=== PATIENT | female | born 1965 | race Caucasian/White ===

== ENCOUNTER → 2016-06-22 | Outpatient (RCR) | payer OTHER ==
[~2016-06-22] MED LIST: AMLO5TAB2 PO; ATOR40TA PO; AUGM500T34 PO; CLIN300C2 PO; CYCL10TA PO; GEMF600T PO; HYDR-3713 PO; JANU50TA4 PO; LEVO2TA PO; LOSA50TA20 PO; OMEP20CA3 PO; ZOLO50TA PO
== END ==
LOC: M PT 06-03 09:16 → M OT 06-15 10:41
PROVIDERS: ATTEND Nurse Practitioner Adult Health
DX: Z51.89 Encounter for other specified aftercare (principal); R26.89 Other abnormalities of gait and mobility; S06.0X0D Concussion without loss of consciousness, subsequent encounter

== ENCOUNTER 2016-07-13 10:45 | Outpatient (RCR) | payer OTHER | END 2016-07-23 | LOC: M OT 10:45 | PROVIDERS: ATTEND Nurse Practitioner Adult Health | DX: Z51.89 Encounter for other specified aftercare (principal); R26.89 Other abnormalities of gait and mobility; S06.0X0D Concussion without loss of consciousness, subsequent encounter ==

== ENCOUNTER 2017-04-14 12:35 | Observation (INO) | payer MEDICAID, OTHER ==
[~2017-04-14] VITALS: Ht 170.2 cm; Wt 105.2 kg
[~2017-04-14 12:35] MED LIST changes: -ATOR40TA PO; +ATOR40TA75 PO
[2017-04-14] MEDS ORDERED: GLIP5TAB8 PO (12:51)
[2017-04-14] MEDS ORDERED: GABA600T PO (12:51)
[2017-04-14] MEDS ORDERED: TRAZ-136 PO (12:51)
[2017-04-14] MEDS ORDERED: TOPA50TA8 PO (12:52)
[2017-04-14] MEDS ORDERED: TRUL10IN SC (12:56)
[2017-04-14] MEDS ORDERED: NITROGLYCERIN 0.4 MG SUBL TABLET SL PRN (13:00)
[2017-04-14 13:34] LABS: BASO # 0.1 10^3/uL (0.0-0.2); BASO % 1.1 % (0.0-1.0); EOS # 0.4 10^3/uL (0.0-0.50); EOS % 4.4 % (0.0-3.0); IMMATURE GRANULOCYTE % 1.3 % (0-0); LYMPH # 2.3 10^3/uL (1.5-4.5); LYMPH % 27.4 % (24.0-44.0); MEAN CORPUSCULAR HEMOGLOBIN 29.3 pg (27.0-33.0); MEAN CORPUSCULAR HGB CONC 33.9 g/dl (32.0-36.5); MEAN CORPUSCULAR VOLUME 86.2 fl (80.0-96.0); MONO # 0.5 10^3/uL (0.0-0.8); NEUTROPHILS # 5.1 10^3/uL (1.8-7.7); NEUTROPHILS % 59.8 % (36.0-66.0); PLATELET COUNT, AUTOMATED 288 10^3/uL (150-450); RED CELL DISTRIBUTION WIDTH 13.1 % (11.5-14.5); WHITE BLOOD COUNT 8.5 10^3/uL (4.0-10.0)
[2017-04-14 13:39] LABS: SPECIFIC GRAVITY UR AUTO RFX 1.016 (1.002-1.035); SQUAM EPITHELIAL CELL UR AURFX 1 /HPF (0-6)
[2017-04-14 13:47] LABS: INR 1.02
--- NOTE | 2017-04-14 14:13 | REP ---
Bilateral lower extremity Duplex Doppler venous ultrasound: Real time compression and duplex Doppler interrogation of the bilateral lower extremity deep venous system is performed. Bilaterally, the common femoral, superficial femoral and popliteal veins are fully compressible with transducer pressure and demonstrate normal spontaneous and phasic flow, without evidence of deep venous thrombosis. Impression: No evidence of deep venous thrombosis of the bilateral lower extremity femoral popliteal venous system. Signed by Jf George MD 04/14/2017 02:05 P
[2017-04-14 14:14] LABS: ALBUMIN/GLOBULIN RATIO 0.83 (1.00-1.93); ALKALINE PHOSPHATASE 77 U/L (45-117); ALT/SGPT 33 U/L (12-78); ANION GAP 10 MEQ/L (8-16); AST/SGOT 16 U/L (7-37); BILIRUBIN,DIRECT < 0.1 MG/DL (0.0-0.2); BILIRUBIN,TOTAL 0.2 MG/DL (0.2-1.0); BLOOD UREA NITROGEN 20 MG/DL (7-18); CALCIUM LEVEL 8.4 MG/DL (8.5-10.1); CARBON DIOXIDE LEVEL 19 MEQ/L (21-32); CHLORIDE LEVEL 110 MEQ/L (98-107); CREATININE FOR GFR 1.08 MG/DL (0.55-1.02); GLOMERULAR FILTRATION RATE 56.5 (>51); GLUCOSE, FASTING 190 MG/DL (70-105); POTASSIUM SERUM 4.4 MEQ/L (3.5-5.1); SODIUM LEVEL 139 MEQ/L (136-145); TOTAL PROTEIN 6.6 GM/DL (6.4-8.2)
[2017-04-14] MEDS ORDERED: ISOVUE-370 76% 100ML VIAL (Q9967) As Ordered ONE (14:36)
--- NOTE | 2017-04-14 14:36 | REP ---
CHEST: Two views. There is no evidence of acute infiltrate. No pleural effusion is seen. The heart is normal in size. The mediastinal silhouette is unremarkable. The visualized osseous structures are intact. IMPRESSION: No acute pulmonary disease. Signed by Jf George MD 04/14/2017 08:40 P
[2017-04-14] MEDS ORDERED: NS 1,000 ML IV SCH (15:19)
--- NOTE | 2017-04-14 15:19 | REP ---
CT ANGIOGRAM OF THE CHEST: TECHNIQUE: Axial contrast enhanced images from the thoracic inlet to the upper abdomen using 100 mL Isovue 370 intravenous contrast material with multiplanar reformations. The lungs are free of infiltrate or other abnormal parenchymal opacities. There is no CT evidence of pulmonary embolism. There is no evidence of thoracic aortic aneurysm or dissection. There is no mediastinal, hilar or chest wall lymphadenopathy. There is no pleural or pericardial effusion. The heart is normal in size. There is diffuse fatty infiltration of the liver. The patient has had a prior cholecystectomy. IMPRESSION: No CT evidence of pulmonary embolism. No acute pulmonary disease. Signed by Jf George MD 04/14/2017 08:41 P
[2017-04-14] MEDS ORDERED: MORPHINE 2 MG/ML 1ML SYRINGE IV ONE (15:30)
[2017-04-14 20:10] LABS: TRIGLYCERIDES LEVEL 551 MG/DL (<150)
[2017-04-14] MEDS ORDERED: LEVO200T31 PO (20:40)
[2017-04-14] MEDS ORDERED: GLIP10TA6 PO (20:40)
[2017-04-14] MEDS ORDERED: SERT25TA PO (20:40)
[2017-04-14] MEDS ORDERED: IBUP1TAB7 PO (20:41)
[2017-04-14] MEDS ORDERED: GEMF600T PO (20:41)
[2017-04-14] MEDS ORDERED: GABA-282 PO (20:41)
[2017-04-14] MEDS ORDERED: ONDANSETRON 4MG/2ML VIAL (J2405) IV PRN (22:00)
[2017-04-14] MEDS ORDERED: traZODone 100 MG TAB PO PRN (22:00)
[2017-04-14] MEDS ORDERED: amLODIPine 5 MG TAB PO ONE (22:00)
--- NOTE | 2017-04-14 22:10 | REPUSA ---
Clinical history: Right upper quadrant pain. Findings: The pancreas is limited in visualization secondary to overlying bowel gas. The liver demons trates increased echotexture and echogenicity, with no mass lesions. The gallbladder is not visualize d. The common bile duct measures 7 mm and is within normal limits. There is no ascites. The right kid wan measures 13.2 cm in length and is unremarkable. Impression: Fatty infiltration of the liver.
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
[2017-04-14] MEDS: TOPIRAMATE (TopAMAX) 25 MG TAB PO SCH (23:29)
[2017-04-14 23:30] VITALS: BP 176/80
[2017-04-14] MEDS: GABAPENTIN 300 MG CAP PO SCH (23:30)
[2017-04-14] MEDS: GEMFIBROZIL 600 MG TAB PO SCH (23:31)
[2017-04-14] MEDS: NS 1,000 ML IV SCH (23:31)
[2017-04-15] VITALS: BP 170/92
[2017-04-15 04:00] VITALS: BP 133/74
[2017-04-15] MEDS: MORPHINE 2 MG/ML 1ML SYRINGE IV PRN ×2 (05:39→20:52)
[2017-04-15] MEDS: LEVOTHYROXINE 100MCG TABLET (0.1MG) PO SCH (05:39)
[2017-04-15 05:43] LABS: MEAN CORPUSCULAR HEMOGLOBIN 28.7 pg (27.0-33.0); MEAN CORPUSCULAR HGB CONC 33.6 g/dl (32.0-36.5); MEAN CORPUSCULAR VOLUME 85.4 fl (80.0-96.0); PLATELET COUNT, AUTOMATED 251 10^3/uL (150-450); WHITE BLOOD COUNT 7.3 10^3/uL (4.0-10.0)
[2017-04-15 06:12] LABS: ALBUMIN 2.8 GM/DL (3.2-5.2); ALBUMIN/GLOBULIN RATIO 0.97 (1.00-1.93); ALKALINE PHOSPHATASE 75 U/L (45-117); ALT/SGPT 32 U/L (12-78); ANION GAP 10 MEQ/L (8-16); AST/SGOT 30 U/L (7-37); BILIRUBIN,TOTAL 0.2 MG/DL (0.2-1.0); BLOOD UREA NITROGEN 13 MG/DL (7-18); CALCIUM LEVEL 8.2 MG/DL (8.5-10.1); CARBON DIOXIDE LEVEL 20 MEQ/L (21-32); CHLORIDE LEVEL 112 MEQ/L (98-107); CREATININE FOR GFR 0.97 MG/DL (0.55-1.02); GLOMERULAR FILTRATION RATE > 60.0 (>51); GLUCOSE, FASTING 122 MG/DL (70-105); POTASSIUM SERUM 4.1 MEQ/L (3.5-5.1); SODIUM LEVEL 142 MEQ/L (136-145); TOTAL PROTEIN 5.7 GM/DL (6.4-8.2)
[2017-04-15 07:34] VITALS: BP 152/72
[2017-04-15] MEDS ORDERED: OMEPRAZOLE 20 MG CAP PO SCH (09:00)
[2017-04-15] MEDS ORDERED: ACETAMINOPHEN TAB 650MG DOSE (2X325MG) PO PRN (09:15)
[2017-04-15] MEDS: SERTRALINE HCL 25 MG TABLET PO SCH (09:46)
[2017-04-15] MEDS: TOPIRAMATE (TopAMAX) 25 MG TAB PO SCH ×2 (09:46→20:49)
[2017-04-15] MEDS: ENOXAPARIN 40 MG/0.4 ML SYRINGE (J1650) SC SCH (09:46)
[2017-04-15] MEDS: PANTOPRAZOLE 40MG INJ (PROTONIX) (C9113) IV SCH (09:46)
[2017-04-15] MEDS: GABAPENTIN 300 MG CAP PO SCH ×3 (09:46→20:49)
[2017-04-15 11:27] VITALS: BP 126/60
[2017-04-15] MEDS: NS 1,000 ML IV SCH ×2 (13:00→22:45)
[2017-04-15 16:00] VITALS: BP 140/86
[2017-04-15] MEDS ORDERED: IBUPROFEN 600 MG TAB PO PRN (16:15)
--- NOTE | 2017-04-15 16:41 | ECGEPIP ---
Stationary ECG Study [facility] - ED Test Date: 2017-04-14 Pat Name: OMEGA ALVES Department: Room: - Gender: F Occupational Health Nurse Supervisor: belén : 1965 Requested By: Haroldo Bob Order Number: [id number] Reading MD: Blanca Ortiz Measurements Intervals [place] Rate: 79 P: 35 ND: 128 QRS: 47 QRSD: 110 T: 80 QT: 382 QTc: 440 Interpretive Statements SINUS RHYTHM NONSPECIFIC T-WAVE ABNORMALITY DECREASED RATE 12/29/13 Electronically Signed On 04-15-2017 16:41:33 EST by Blanca Ortiz
--- NOTE | 2017-04-15 16:49 | ECGEPIP ---
Stationary ECG Study [facility] - ED Test Date: 2017-04-14 Pat Name: OMEGA ALVES Department: Room: [place] [address] Gender: F Tile Inspector: ESHA : 1965 Requested By: SHARA Byers Order Number: [id number] Reading MD: Blanca Ortiz Measurements Intervals [place] Rate: 71 P: 53 IA: 163 QRS: 70 QRSD: 110 T: 88 QT: 396 QTc: 431 Interpretive Statements SINUS RHYTHM NONSPECIFIC T-WAVE ABNORMALITY SIMILAR 04/14/17 Electronically Signed On 04-15-2017 16:48:41 EST by Blanca Ortiz
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
[2017-04-15 20:00] VITALS: BP 170/95
[2017-04-15] MEDS: GEMFIBROZIL 600 MG TAB PO SCH (20:49)
[2017-04-16] VITALS (7 sets, daily range): BP systolic 114–158; BP diastolic 65–93
--- NOTE | 2017-04-16 01:07 | ECGEPIP ---
Stationary ECG Study [facility] Test Date: 2017-04-15 Pat Name: OMEGA ALVES Department: Room: I0437-98 Gender: F Gag Writer: KIAN : 1965 Requested By: NEIL Lopez Order Number: [id number] Reading MD: Neil Connolly Measurements Intervals [place] Rate: 82 P: 47 MN: 158 QRS: 65 QRSD: 112 T: 82 QT: 411 QTc: 482 Interpretive Statements SINUS RHYTHM WITH FREQUENT VENTRICULAR PREMATURE COMPLEXES MODERATE INTRAVENTRICULAR CONDUCTION DELAY Nonspecific ST-T wave abnormalities Electronically Signed On 04-16-2017 1:06:36 EST by Neil Connolly
[2017-04-16 05:10] LABS: MEAN CORPUSCULAR HEMOGLOBIN 28.8 pg (27.0-33.0); MEAN CORPUSCULAR HGB CONC 33.5 g/dl (32.0-36.5); MEAN CORPUSCULAR VOLUME 85.8 fl (80.0-96.0); PLATELET COUNT, AUTOMATED 229 10^3/uL (150-450); RED CELL DISTRIBUTION WIDTH 12.7 % (11.5-14.5); WHITE BLOOD COUNT 5.7 10^3/uL (4.0-10.0)
[2017-04-16 05:25] LABS: ALBUMIN 2.7 GM/DL (3.2-5.2); ALBUMIN/GLOBULIN RATIO 0.79 (1.00-1.93); BILIRUBIN,TOTAL 0.3 MG/DL (0.2-1.0); CALCIUM LEVEL 8.1 MG/DL (8.5-10.1); CREATININE FOR GFR 1.13 MG/DL (0.55-1.02); GLOMERULAR FILTRATION RATE 53.6 (>51); POTASSIUM SERUM 3.9 MEQ/L (3.5-5.1); TOTAL PROTEIN 6.1 GM/DL (6.4-8.2)
[2017-04-16] MEDS: LEVOTHYROXINE 100MCG TABLET (0.1MG) PO SCH (05:55)
[2017-04-16] MEDS: ENOXAPARIN 40 MG/0.4 ML SYRINGE (J1650) SC SCH (09:12)
[2017-04-16] MEDS: PANTOPRAZOLE 40MG INJ (PROTONIX) (C9113) IV SCH (09:12)
[2017-04-16] MEDS: TOPIRAMATE (TopAMAX) 25 MG TAB PO SCH ×2 (09:13→20:36)
[2017-04-16] MEDS: GABAPENTIN 300 MG CAP PO SCH ×3 (09:13→20:37)
[2017-04-16] MEDS: SERTRALINE HCL 25 MG TABLET PO SCH (09:13)
[2017-04-16] MEDS: NS 1,000 ML IV SCH ×2 (10:50→23:21)
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
[2017-04-16] MEDS: GEMFIBROZIL 600 MG TAB PO SCH (20:37)
[2017-04-17 05:51] LABS: MEAN CORPUSCULAR HGB CONC 33.8 g/dl (32.0-36.5); MEAN CORPUSCULAR VOLUME 85.8 fl (80.0-96.0); PLATELET COUNT, AUTOMATED 231 10^3/uL (150-450); RED CELL DISTRIBUTION WIDTH 12.9 % (11.5-14.5); WHITE BLOOD COUNT 5.2 10^3/uL (4.0-10.0)
[2017-04-17 06:00] VITALS: BP 142/66
[2017-04-17] MEDS: LEVOTHYROXINE 100MCG TABLET (0.1MG) PO SCH (06:06)
[2017-04-17 06:13] LABS: ALBUMIN 2.7 GM/DL (3.2-5.2); ALBUMIN/GLOBULIN RATIO 0.79 (1.00-1.93); BILIRUBIN,TOTAL 0.3 MG/DL (0.2-1.0); CREATININE FOR GFR 1.12 MG/DL (0.55-1.02); GLOMERULAR FILTRATION RATE 54.2 (>51); POTASSIUM SERUM 3.8 MEQ/L (3.5-5.1); TOTAL PROTEIN 6.1 GM/DL (6.4-8.2)
[2017-04-17] MEDS: SERTRALINE HCL 25 MG TABLET PO SCH (09:21)
[2017-04-17] MEDS: PANTOPRAZOLE 40MG INJ (PROTONIX) (C9113) IV SCH (09:21)
[2017-04-17] MEDS: GABAPENTIN 300 MG CAP PO SCH (09:21)
[2017-04-17] MEDS: TOPIRAMATE (TopAMAX) 25 MG TAB PO SCH (09:22)
[2017-04-17] MEDS: ENOXAPARIN 40 MG/0.4 ML SYRINGE (J1650) SC SCH (09:22)
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
== END 2017-04-17 12:08 | disposition home or self-care (01) ==
LOC: EDSEX 12:35 → EDBD 12:35 → M ED 12:35 → M ED INP 21:53 → M ICU 22:38 → M PCU 04-15 15:38 → M MSPAV 04-16 17:23
PROVIDERS: ADMIT Internal Medicine; ATTEND Internal Medicine
DX: R07.89 Other chest pain (principal); R51 Headache; I10 Essential (primary) hypertension; K86.1 Other chronic pancreatitis; E78.5 Hyperlipidemia, unspecified; E11.9 Type 2 diabetes mellitus without complications; E03.9 Hypothyroidism, unspecified; K21.9 Gastro-esophageal reflux disease without esophagitis; F07.81 Postconcussional syndrome; F41.9 Anxiety disorder, unspecified; F32.9 Major depressive disorder, single episode, unspecified; Z88.2 Allergy status to sulfonamides; Z88.8 Allergy status to other drugs, medicaments and biological substances; Z91.040 Latex allergy status; Z79.899 Other long term (current) drug therapy
CPT/HCPCS: 36415; 71020; 71275; 76705; 80048; 80053; 80076; 81001; 82550; 82553; 83036; 83690; 83880; 84443; 84478; 85025; 85027; 85610; 85730; 93005; 93041; 93970; 94760; 96372; 96374; 96375; 96376; 99285; C9113; J1650; J2405; Q9967

== ENCOUNTER → 2017-12-19 | Outpatient (CLI) | payer OTHER | LOC: M RAD 10:02 | DX: H90.A31 Mixed conductive and sensorineural hearing loss, unilateral, right ear with restricted hearing on the contralateral side (principal) | CPT/HCPCS: 70480 ==

== ENCOUNTER → 2018-10-28 | Outpatient (REF) | payer MEDICARE, MEDICAID ==
[~2018-10-28] MED LIST changes: -AMLO5TAB2 PO; +AMLO5TAB6 PO; +GABA-843 PO; +GABA600T4 PO; -GEMF600T PO; +GEMF600T5 PO; +GLIP10TA6 PO; +GLIP5TAB8 PO; +IBUP1TAB7 PO; +LEVO200T31 PO; -LOSA50TA20 PO; +LOSA50TA88 PO; -OMEP20CA3 PO; +OMEP20CA4 PO; +SERT25TA85 PO; +TOPA50TA8 PO; +TRAZ-163 PO; +TRUL10IN SC
== END ==
LOC: M LAB REF 10:00
PROVIDERS: ATTEND Physician Assistant
DX: R30.0 Dysuria (principal)

== ENCOUNTER → 2019-04-02 | Outpatient (CLI) | payer OTHER ==
[~2019-04-02] MED LIST changes: +OMEP-172 PO; -OMEP20CA4 PO
[2019-04-02 14:20] LABS: CHOLESTEROL RISK RATIO 6.093 (<5)
[2019-04-02 14:29] LABS: HEMOGLOBIN A1c 8.2 %
== END ==
LOC: M PLALAB 10:16
PROVIDERS: ATTEND Student in an Organized Health Care Education/Training Program
DX: F33.1 Major depressive disorder, recurrent, moderate (principal); F41.1 Generalized anxiety disorder; F43.23 Adjustment disorder with mixed anxiety and depressed mood

== ENCOUNTER → 2020-01-09 | Outpatient (REF) | payer OTHER ==
[~2020-01-09] MED LIST changes: +AMLO1TAB24 PO; -AMLO5TAB6 PO; +CYCL-707 PO; -CYCL10TA PO; -OMEP-172 PO; +OMEP1CAP73 PO; -TRAZ-163 PO; +TRAZ-257 PO
== END ==
LOC: M LAB REF 17:06
PROVIDERS: ATTEND Podiatrist
DX: L03.031 Cellulitis of right toe (principal); M79.671 Pain in right foot

== ENCOUNTER → 2020-01-25 | Outpatient (REF) | payer OTHER ==
[2020-01-25 17:51] LABS: COMPLEMENT C3 143 MG/DL (90-180); COMPLEMENT C4 29 MG/DL (10-40)
[2020-01-29 10:43] LABS: ALBUMIN 3.32 GM/DL (3.29-5.55); ALBUMIN % 55.3 % (55.8-66.1); ALPHA-1-GLOBULIN % 5.2 % (2.9-4.9); ALPHA-1-GLOBULINS 0.31 GM/DL (0.17-0.41); ALPHA-2-GLOBULINS 1.04 GM/DL (0.42-0.99); ALPHA-2-GLOBULINS % 17.3 % (7.1-11.8); BETA-1-GLOBULINS % 6.6 % (4.7-7.2); BETA-2-GLOBULINS 0.35 GM/DL (0.19-0.55); BETA-2-GLOBULINS % 5.8 % (3.2-6.5); GAMMA GLOBULIN % 9.8 % (11.1-18.8); GAMMA GLOBULINS 0.59 GM/DL (0.65-1.58)
[2020-01-29 18:16] LABS: ANCA-ATYPICAL <1:20 titer (Neg:<1:20); ANTI DS-DNA AB Negative (Negative); ANTI-GLOMERULAR BASEMENT MEMB 3 units (0-20); ANTINUCLEAR ANTIBODIES DIRECT Negative (Negative); CYTOPLASMIC NEUTROP AB ANCA-C <1:20 titer (Neg:<1:20); FREE KAPPA LIGHT CHAINS SERUM 50.1 mg/L (3.3-19.4); FREE LAMBDA LIGHT CHAINS SERUM 28.9 mg/L (5.7-26.3); KAPPA/LAMBDA RATIO SERUM 1.73 (0.26-1.65); PERINUCLEAR AB ANCA-P <1:20 titer (Neg:<1:20)
== END ==
LOC: M LAB REF 16:44
PROVIDERS: ATTEND Internal Medicine Nephrology
DX: R80.9 Proteinuria, unspecified (principal)

== ENCOUNTER → 2020-01-30 | Outpatient (CLI) | payer OTHER ==
--- NOTE | 2020-02-04 11:14 | REP ---
URINARY TRACT SONOGRAPHY HISTORY: Chronic kidney disease stage III. FINDINGS: Scanning at the level of the urinary bladder confirms the presence of emptying ureteral jets bilaterally. No bladder mass lesion is observed. Renal cortical echogenicity pattern is normal and contours are smooth in each kidney. No hydronephrosis is seen on either side. No cyst, mass, or calculus is seen. Right kidney dimensions are 11.8 x 5.6 x 5.4 cm. Left renal dimensions are 12.1 x 5.0 x 6.1 cm. IMPRESSION: No morphologic abnormality noted. No evidence of obstructive uropathy. MTDD
== END ==
LOC: M RAD 08:25
PROVIDERS: ATTEND Internal Medicine Nephrology
DX: N18.30 Chronic kidney disease, stage 3 unspecified (principal); E11.9 Type 2 diabetes mellitus without complications

== ENCOUNTER → 2020-02-14 | Outpatient (REF) | payer OTHER | LOC: M LAB REF 16:59 | PROVIDERS: ATTEND Internal Medicine Nephrology | DX: N18.32 Chronic kidney disease, stage 3b (principal); R80.9 Proteinuria, unspecified ==

== ENCOUNTER → 2020-03-19 | Outpatient (REF) | payer OTHER ==
[2020-03-19 18:59] LABS: HEPATITIS B CORE ANTIBODY IGM NEGATIVE (NEGATIVE); HEPATITIS B SURFACE ANTIBODY NEGATIVE (POSITIVE); HEPATITIS B SURFACE ANTIGEN NEGATIVE (NEGATIVE); HEPATITIS C VIRUS ABY INDEX 0.1 INDEX (<0.8)
== END ==
LOC: M LAB REF 17:02
PROVIDERS: ATTEND Internal Medicine Nephrology
DX: R80.9 Proteinuria, unspecified (principal); N18.32 Chronic kidney disease, stage 3b

== ENCOUNTER → 2020-07-14 | Outpatient (REF) | payer OTHER ==
[~2020-07-14] MED LIST changes: +GABA-282 PO; -GABA-843 PO
== END ==
LOC: M LAB REF 17:07
PROVIDERS: ATTEND Internal Medicine Nephrology
DX: R80.9 Proteinuria, unspecified (principal); N18.32 Chronic kidney disease, stage 3b

== ENCOUNTER → 2020-11-13 | Outpatient (REF) | payer OTHER | LOC: M LAB REF 17:23 | PROVIDERS: ATTEND Internal Medicine Nephrology | DX: E11.22 Type 2 diabetes mellitus with diabetic chronic kidney disease (principal) ==

== ENCOUNTER → 2021-03-02 | Outpatient (REF) | payer OTHER | LOC: M LAB REF 12:47 | PROVIDERS: ATTEND Internal Medicine Nephrology | DX: E11.22 Type 2 diabetes mellitus with diabetic chronic kidney disease (principal); E83.42 Hypomagnesemia ==

== ENCOUNTER → 2021-05-06 | Outpatient (REF) | payer OTHER ==
[~2021-05-06] MED LIST changes: +LOSA50TA28 PO; -LOSA50TA88 PO
== END ==
LOC: M LAB REF 15:30
PROVIDERS: ATTEND Podiatrist
DX: M79.672 Pain in left foot (principal); L03.115 Cellulitis of right lower limb

== ENCOUNTER → 2021-06-25 | Outpatient (CLI) | payer OTHER, MEDICAID ==
[~2021-06-25] MED LIST changes: +ATOR80TA59 PO; +CITA40TA7 PO; +CLOP75TA2 PO; +ECOT81TA5 PO; +EZET10TA21 PO; +FERR32TA PO; +FURO80TA2 PO; +INSU100I16 SQ; +LANTINJ4 SC; +MAGN400C2 PO; +METO1TAB87 PO; +PANT40TA29 PO; +VITMTA PO
[2021-06-25 11:00] LABS: BASO # 0.1 10^3/uL (0.0-0.2); EOS # 0.8 10^3/uL (0.0-0.5); HEMATOCRIT 39.4 % (36.0-47.0); HEMOGLOBIN 12.1 g/dl (12.0-15.5); LYMPH # 1.7 10^3/uL (1.5-5.0); LYMPH % 18.5 % (24.0-44.0); MEAN CORPUSCULAR HEMOGLOBIN 26.7 pg (27.0-33.0); MEAN CORPUSCULAR HGB CONC 30.7 g/dl (32.0-36.5); MEAN CORPUSCULAR VOLUME 86.8 fl (80.0-96.0); MONO # 0.4 10^3/uL (0.0-0.8); MONO % 4.6 % (2.0-8.0); NEUTROPHILS # 6.2 10^3/uL (1.5-8.5); NEUTROPHILS % 66.9 % (36.0-66.0); PLATELET COUNT, AUTOMATED 256 10^3/uL (150-450); RED BLOOD COUNT 4.54 10^6/uL (4.00-5.40); WHITE BLOOD COUNT 9.3 10^3/uL (4.0-10.0)
[2021-06-25 11:24] LABS: CREATININE FOR GFR 2.36 MG/DL (0.55-1.30); GLOMERULAR FILTRATION RATE 22.6 (>51); POTASSIUM SERUM 4.8 MEQ/L (3.5-5.1)
== END ==
LOC: M RAD 10:13
PROVIDERS: ATTEND Podiatrist
DX: M20.41 Other hammer toe(s) (acquired), right foot (principal); M79.671 Pain in right foot

== ENCOUNTER → 2021-06-29 | Outpatient (CLI) | payer OTHER | LOC: M LABSMTC 10:25 | PROVIDERS: ATTEND Anesthesiology | DX: Z01.818 Encounter for other preprocedural examination (principal); Z11.52 Encounter for screening for COVID-19 ==

== ENCOUNTER 2021-07-03 08:57 | Day surgery (SDC) | payer OTHER, MEDICAID ==
[~2021-07-03] VITALS: Ht 170.2 cm; Wt 107.7 kg
[~2021-07-03 08:57] MED LIST changes: +LIDOCAINE 1% MDV 20ML VIAL SQ PRN; +LR 1,000 ML IV ONE; +ceFAZolin SOD 2 GM in IV 1 EA IV ONE
[2021-07-03] MEDS ORDERED: fentaNYL 100 MCG/2 ML INJECTION As Ordered ONE (10:07)
[2021-07-03] MEDS ORDERED: MIDAZOLAM INJ 2MG/2ML VIAL (J2250 PER 1MG) As Ordered ONE (10:07)
[2021-07-03] MEDS ORDERED: LIDOCAINE 2% 100MG/5ML SDV (FOR ANES.) As Ordered ONE (10:07)
[2021-07-03] MEDS ORDERED: ONDANSETRON 4MG/2ML VIAL As Ordered ONE (10:08)
[2021-07-03] MEDS ORDERED: propofoL 200 MG/20 ML VIAL As Ordered ONE (10:08)
[2021-07-03] MEDS ORDERED: LIDOCAINE 2% MDV 20ML VIAL As Ordered ONE (10:26)
[2021-07-03] MEDS ORDERED: dexameTHASONE 4 MG/ML 1ML VIAL (J1100 PER 1MG) As Ordered ONE (10:26)
[2021-07-03] MEDS ORDERED: GENTAMICIN SULF 80MG/2ML VIAL As Ordered ONE (10:26)
[2021-07-03] MEDS ORDERED: BUPIVACAINE HCL 0.5% 10ML VIAL As Ordered ONE (10:26)
[2021-07-03] MEDS ORDERED: ACETAMINOPHEN 1000MG 100ML IV BTL (OFIRMEV) (J0131 PER 10MG) As Ordered ONE (10:50)
[2021-07-03 12:05] VITALS: BP 114/54
== END 2021-07-03 12:27 | disposition home or self-care (01) ==
LOC: M SDC 08:57
PROVIDERS: ATTEND Podiatrist
DX: M20.41 Other hammer toe(s) (acquired), right foot (principal); Z95.1 Presence of aortocoronary bypass graft; Z95.5 Presence of coronary angioplasty implant and graft; I12.9 Hypertensive chronic kidney disease with stage 1 through stage 4 chronic kidney disease, or unspecified chronic kidney disease; E11.9 Type 2 diabetes mellitus without complications; I25.2 Old myocardial infarction; E03.9 Hypothyroidism, unspecified; M19.90 Unspecified osteoarthritis, unspecified site; F32.9 Major depressive disorder, single episode, unspecified; F41.9 Anxiety disorder, unspecified; R06.83 Snoring; G47.9 Sleep disorder, unspecified; G43.909 Migraine, unspecified, not intractable, without status migrainosus; N18.4 Chronic kidney disease, stage 4 (severe); F12.988 Cannabis use, unspecified with other cannabis-induced disorder; Z88.8 Allergy status to other drugs, medicaments and biological substances; Z79.82 Long term (current) use of aspirin; Z79.899 Other long term (current) drug therapy; Z79.4 Long term (current) use of insulin
CPT/HCPCS: 28270; 28285; 73630; 88300; 97116; J0131; J0690; J1100; J1580; J2250; J2405; J3010

== ENCOUNTER → 2022-05-19 | Outpatient (CLI) | payer OTHER, MEDICAID ==
[~2022-05-19] MED LIST changes: +ISOVUE-300 61% 100ML VIAL ONE; +LIDOCAINE 1% MDV 20ML VIAL ONE; -LIDOCAINE 1% MDV 20ML VIAL SQ PRN; -LR 1,000 ML IV ONE; -ceFAZolin SOD 2 GM in IV 1 EA IV ONE; +methylPREDNISolone SUSP 40MG/ML 1ML VIAL (DEPO MEDROL) ONE
== END ==
LOC: M PLAIMG 13:19
PROVIDERS: ATTEND Physician Assistant Surgical
DX: M16.11 Unilateral primary osteoarthritis, right hip (principal)
CPT/HCPCS: 20610; 76000; Q9967

== ENCOUNTER → 2022-11-02 | Outpatient (CLI) | payer OTHER, MEDICAID ==
[~2022-11-02] MED LIST changes: -ISOVUE-300 61% 100ML VIAL ONE; -LIDOCAINE 1% MDV 20ML VIAL ONE; -methylPREDNISolone SUSP 40MG/ML 1ML VIAL (DEPO MEDROL) ONE
== END ==
LOC: M RAD 17:22
PROVIDERS: ATTEND Nurse Practitioner Family
DX: Z01.818 Encounter for other preprocedural examination (principal); N18.9 Chronic kidney disease, unspecified

== ENCOUNTER → 2022-11-04 | Outpatient (CLI) | payer OTHER, MEDICAID | LOC: M RAD 11:00 | DX: Z01.818 Encounter for other preprocedural examination (principal) ==

== ENCOUNTER → 2022-12-10 | Outpatient (REF) | payer OTHER, MEDICAID | LOC: M SFHCWAGY 17:54 | PROVIDERS: ATTEND Nurse Practitioner Family | DX: Z12.4 Encounter for screening for malignant neoplasm of cervix (principal) | CPT/HCPCS: 87624; G0123 ==

== ENCOUNTER → 2023-02-21 | Outpatient (REF) | payer OTHER, MEDICAID ==
[~2023-02-21] MED LIST changes: +GLIP5TAB17 PO; -GLIP5TAB8 PO
== END ==
LOC: M LAB REF 13:13
PROVIDERS: ATTEND Podiatrist
DX: L03.129 Acute lymphangitis of unspecified part of limb (principal)

== ENCOUNTER → 2023-05-19 | Outpatient (REF) | payer OTHER, MEDICAID | LOC: M LAB REF 16:13 | PROVIDERS: ATTEND Podiatrist | DX: L03.032 Cellulitis of left toe (principal) ==

== ENCOUNTER → 2023-08-09 | Outpatient (REF) | payer OTHER, MEDICAID | LOC: M LAB REF 17:09 | PROVIDERS: ATTEND Podiatrist | DX: L03.032 Cellulitis of left toe (principal) ==

== ENCOUNTER → 2023-12-19 | Outpatient (CLI) | payer OTHER, MEDICAID | LOC: M PLAIMG 09:47 | PROVIDERS: ATTEND Internal Medicine Nephrology | DX: Z01.818 Encounter for other preprocedural examination (principal) ==

== ENCOUNTER 2024-03-30 09:06 | Day surgery (SDC) | payer OTHER, MEDICAID ==
[~2024-03-30] VITALS: Ht 170.2 cm; Wt 104.2 kg
[~2024-03-30 09:06] MED LIST changes: +ARIP1TAB6 PO; +GABA-1172 PO; +GABA-1490 PO; -GABA-282 PO; -GABA600T4 PO; +GLIP10TA15 PO; -GLIP10TA6 PO; +JARD1TAB PO; +LEVO112T2 PO; +NOVOINJ3 SC; +NOVOINJ3 SQ; +ONDA-282 PO; +ROSU40TA81 PO; +THERTAB52 PO
[2024-03-30] MEDS ORDERED: NS 1,000 ML IV SCH (09:15)
[2024-03-30] MEDS: LIDOCAINE 2% MDV 20ML VIAL As Ordered ONE (11:05)
[2024-03-30] MEDS: ceFAZolin SOD 2 GM in IV 1 EA IV ONE (11:05)
[2024-03-30] MEDS: GENTAMICIN SULF 80MG/2ML VIAL As Ordered ONE (11:35)
[2024-03-30 13:09] VITALS: BP 122/71; TEMP 97.2; O2SAT 98
== END 2024-03-30 13:42 | disposition home or self-care (01) ==
LOC: M SDC 09:06
PROVIDERS: ATTEND Podiatrist
DX: M20.42 Other hammer toe(s) (acquired), left foot (principal); E11.9 Type 2 diabetes mellitus without complications; I25.10 Atherosclerotic heart disease of native coronary artery without angina pectoris; I25.2 Old myocardial infarction; Z91.040 Latex allergy status; Z88.8 Allergy status to other drugs, medicaments and biological substances; Z79.899 Other long term (current) drug therapy
CPT/HCPCS: 28124; 28285; 73630; 76000; 88300; 97116; 97161; J0665; J0690; J1100; J1580

== ENCOUNTER → 2024-08-28 | Outpatient (REF) | payer OTHER, MEDICAID | LOC: M LAB REF 15:31 | PROVIDERS: ATTEND Podiatrist | DX: L03.119 Cellulitis of unspecified part of limb (principal) ==

== ENCOUNTER 2025-01-18 06:03 | Day surgery (SDC) | payer MEDICARE ==
[~2025-01-18] VITALS: Ht 170.2 cm; Wt 106.1 kg
[~2025-01-18 06:03] MED LIST changes: +ACET-1592 PO; -EZET10TA21 PO; +EZET10TA57 PO; +GNPTAB37 PO; +HUMA100I5 SQ; +REPA140I2 SC
[2025-01-18] MEDS ORDERED: ACETAMINOPHEN 1000MG/100ML IV BAG As Ordered ONE (06:50)
[2025-01-18] MEDS ORDERED: LIDOCAINE 2% 100 MG/5 ML SDV (FOR ANES.) As Ordered ONE (06:50)
[2025-01-18] MEDS ORDERED: ONDANSETRON 4MG 2ML VIAL As Ordered ONE (06:50)
[2025-01-18] MEDS ORDERED: MIDAZOLAM INJ 2 MG/2 ML VIAL As Ordered ONE (06:51)
[2025-01-18] MEDS ORDERED: LR 1,000 ML IV SCH ×2 (07:05→10:05)
[2025-01-18] MEDS: dexAMETHasone 4 MG/ML 1 ML VIAL As Ordered ONE (07:21)
[2025-01-18] MEDS: ceFAZolin SOD 2 GM IV ONCE IV ONE (07:36)
[2025-01-18] MEDS: LIDOCAINE 2% MDV 20 ML VIAL As Ordered ONE (07:48)
[2025-01-18] MEDS ORDERED: PHENYLephrine 500MCG 5ML (100MCG/ML) SYRINGE As Ordered ONE (07:55)
[2025-01-18] MEDS ORDERED: HYDROMORPHONE HCL 0.5 MG/0.5 ML SYRINGE IV PRN (10:05)
[2025-01-18] MEDS ORDERED: ONDANSETRON 4MG 2ML VIAL IV PRN (10:05)
[2025-01-18 11:05] VITALS: BP 141/73; TEMP 97.4; O2SAT 100
== END 2025-01-18 11:14 | disposition home or self-care (01) ==
LOC: M SDC 06:03
PROVIDERS: ATTEND Podiatrist
DX: M21.621 Bunionette of right foot (principal); M21.531 Acquired clawfoot, right foot; M20.5X1 Other deformities of toe(s) (acquired), right foot; M20.41 Other hammer toe(s) (acquired), right foot; E11.9 Type 2 diabetes mellitus without complications; I25.10 Atherosclerotic heart disease of native coronary artery without angina pectoris; I10 Essential (primary) hypertension; I25.2 Old myocardial infarction; Z88.1 Allergy status to other antibiotic agents; Z91.040 Latex allergy status; Z88.2 Allergy status to sulfonamides
CPT/HCPCS: 28234; 28285; 28308; 73630; 76000; 88300; C1713; J0131; J0665; J0688; J1100; J2371; J2405; J3010

== ENCOUNTER → 2025-02-08 | Outpatient (CLI) | payer OTHER ==
[~2025-02-08] MED LIST changes: +ISOVUE-300 61% 100 ML VIAL As Ordered ONE; +LIDOCAINE 1% MDV 20 ML VIAL As Ordered ONE; +methylPREDNISolone SUSP 40 MG/ML 1 ML VIAL As Ordered ONE
== END ==
LOC: M RAD 13:20
PROVIDERS: ATTEND Physician Assistant Surgical
DX: M16.11 Unilateral primary osteoarthritis, right hip (principal)
CPT/HCPCS: 20610; 77002; J1010; Q9967

== ENCOUNTER → 2025-02-19 | Outpatient (REF) | payer MEDICARE ==
[~2025-02-19] MED LIST changes: -ISOVUE-300 61% 100 ML VIAL As Ordered ONE; -LIDOCAINE 1% MDV 20 ML VIAL As Ordered ONE; -methylPREDNISolone SUSP 40 MG/ML 1 ML VIAL As Ordered ONE
[2025-02-21 12:56] LABS: HPV APTIMA Detected (Not Detected)
== END ==
LOC: M PLALAB 11:32
PROVIDERS: ATTEND Physician Assistant
DX: Z12.4 Encounter for screening for malignant neoplasm of cervix (principal)
CPT/HCPCS: 87624; G0123

== ENCOUNTER → 2025-04-11 | Outpatient (CLI) | payer MEDICARE, MEDICAID | LOC: M WHC 10:15 | PROVIDERS: ATTEND Nurse Practitioner Gerontology | DX: Z13.820 Encounter for screening for osteoporosis (principal); M85.89 Other specified disorders of bone density and structure, multiple sites ==

== ENCOUNTER → 2025-04-16 | Outpatient (REF) | payer MEDICARE, MEDICAID | LOC: M LAB REF 17:04 | PROVIDERS: ATTEND Podiatrist | DX: L03.039 Cellulitis of unspecified toe (principal) ==